=== PATIENT | female | born 1985 | race Caucasian/White ===

== ENCOUNTER 2016-11-06 20:15 | Outpatient (CLI) | payer OTHER ==
[~2016-11-06 20:15] MED LIST: IBUPROFEN600 MG PO; NORCO 5-325 TA1 EACH PO; TRANDATE 200 M200 MG PO
== END 2016-11-06 21:38 | disposition home or self-care (01) ==
LOC: GENOP 20:15
DX: O99.89 Other specified diseases and conditions complicating pregnancy, childbirth and the puerperium (principal); M54.9 Dorsalgia, unspecified; R10.9 Unspecified abdominal pain; Z3A.36 36 weeks gestation of pregnancy
CPT/HCPCS: G0463

== ENCOUNTER 2016-11-08 17:09 | Observation (INO) | payer OTHER ==
[2016-11-08 18:34] LABS: BUN/CREATININE RATIO 10 (0-10)
[2016-11-09 08:08] LABS: HEMOGLOBIN 10.4 gm/dl (12.3-15.3); RED BLOOD COUNT 3.68 M/UL (4.00-5.10); WHITE BLOOD COUNT 10.7 K/UL (4.5-11.0)
[2016-11-09 18:05] LABS: URINE TOTAL PROTEIN 13 mg/dl
== END 2016-11-09 19:16 | disposition home or self-care (01) ==
LOC: GENOP 17:09 → OB 17:33
PROVIDERS: Obstetrics & Gynecology; ADMIT Obstetrics & Gynecology
DX: O13.3 Gestational [pregnancy-induced] hypertension without significant proteinuria, third trimester (principal); Z3A.36 36 weeks gestation of pregnancy; Z98.818 Other dental procedure status; Z79.899 Other long term (current) drug therapy; Z88.2 Allergy status to sulfonamides
CPT/HCPCS: 36415; 59025; 80053; 81001; 84156; 84550; 85027; 85610; 85730; G0378

== ENCOUNTER 2016-11-15 07:29 | Inpatient (IN) | payer OTHER ==
[2016-11-15 08:12] LABS: HEMOGLOBIN 11.2 gm/dl (12.3-15.3); RED BLOOD COUNT 3.89 M/UL (4.00-5.10); WHITE BLOOD COUNT 8.8 K/UL (4.5-11.0)
[2016-11-16 03:53] LABS: HEMOGLOBIN 9.4 gm/dl (12.3-15.3)
[2016-11-18] MEDS ORDERED: STOOL SOFTENER100 MG PO (10:23)
== END 2016-11-18 12:25 | disposition home or self-care (01) | DRG 765 ==
LOC: OB 07:29
PROVIDERS: Obstetrics & Gynecology; ADMIT Obstetrics & Gynecology
PROC: 3E0R3CZ (ICD-10-PCS; 2016-11-15)
PROC: 10D00Z1 Extraction of Products of Conception, Low, Open Approach (ICD-10-PCS; principal; 2016-11-15 11:15)
PROC: 3E0234Z Introduction of Serum, Toxoid and Vaccine into Muscle, Percutaneous Approach (ICD-10-PCS; 2016-11-16)
DX: O13.4 Gestational [pregnancy-induced] hypertension without significant proteinuria, complicating childbirth (principal); O98.32 Other infections with a predominantly sexual mode of transmission complicating childbirth; O34.219 Maternal care for unspecified type scar from previous cesarean delivery; N85.8 Other specified noninflammatory disorders of uterus; Z3A.37 37 weeks gestation of pregnancy; Z37.0 Single live birth; O99.42 Diseases of the circulatory system complicating childbirth; I34.1 Nonrheumatic mitral (valve) prolapse; O99.02 Anemia complicating childbirth; D64.9 Anemia, unspecified; A63.0 Anogenital (venereal) warts; O09.213 Supervision of pregnancy with history of pre-term labor, third trimester; O90.89 Other complications of the puerperium, not elsewhere classified; G89.18 Other acute postprocedural pain; O99.353 Diseases of the nervous system complicating pregnancy, third trimester; G43.909 Migraine, unspecified, not intractable, without status migrainosus; Z23 Encounter for immunization; Z87.440 Personal history of urinary (tract) infections; Z79.899 Other long term (current) drug therapy; Z88.2 Allergy status to sulfonamides; Z91.040 Latex allergy status; Z90.49 Acquired absence of other specified parts of digestive tract; Z98.890 Other specified postprocedural states; Z80.1 Family history of malignant neoplasm of trachea, bronchus and lung; Z80.6 Family history of leukemia; Z82.49 Family history of ischemic heart disease and other diseases of the circulatory system; Z83.3 Family history of diabetes mellitus; Z84.1 Family history of disorders of kidney and ureter; Z83.49 Family history of other endocrine, nutritional and metabolic diseases
CPT/HCPCS: 36415; 36600; 81001; 82800; 85014; 85018; 85025; 90715; C9113; J0690; J2274; J2405; J2590; J2765; J3010; J3430; J7120

== ENCOUNTER 2016-12-09 10:40 | Inpatient (IN) | payer OTHER ==
[~2016-12-09] VITALS: Ht 162.6 cm; Wt 58.1 kg
[~2016-12-09 10:40] MED LIST changes: +STOOL SOFTENER100 MG PO
[2016-12-09 13:26] LABS: HEMOGLOBIN 10.5 gm/dl (12.3-15.3); RED BLOOD COUNT 3.81 M/UL (4.00-5.10); WHITE BLOOD COUNT 15.3 K/UL (4.5-11.0)
[2016-12-10 03:41] LABS: HEMOGLOBIN 7.8 gm/dl (12.3-15.3); RED BLOOD COUNT 2.86 M/UL (4.00-5.10); WHITE BLOOD COUNT 10.5 K/UL (4.5-11.0)
[2016-12-10 03:49] LABS: BUN/CREATININE RATIO 16 (0-10)
[2016-12-10 15:10] LABS: HEMOGLOBIN 7.9 gm/dl (12.3-15.3)
== END 2016-12-12 17:02 | disposition home or self-care (01) | DRG 776 ==
LOC: ER1 10:40 → ZEROF 16:02 → MED SURG 4 21:07 → OB 21:54
PROVIDERS: Physician Assistant; ADMIT Obstetrics & Gynecology
DX: O86.21 Infection of kidney following delivery (principal); O90.81 Anemia of the puerperium; K66.8 Other specified disorders of peritoneum; G43.909 Migraine, unspecified, not intractable, without status migrainosus; Z88.2 Allergy status to sulfonamides; Z91.040 Latex allergy status
CPT/HCPCS: 36415; 70470; 80053; 81001; 83605; 83690; 84484; 85014; 85018; 85025; 87040; 87086; 93005; 96374; 96375; 99285; J0696; J0780; J1200; J2270; J2405; J2765; J3475; J7030; J7050; J7120; Q9962; Q9966

== ENCOUNTER → 2020-09-28 | Outpatient (CLI) | payer OTHER | LOC: EMI 08:45 | DX: M25.561 Pain in right knee (principal); M25.361 Other instability, right knee; R60.0 Localized edema; R93.6 Abnormal findings on diagnostic imaging of limbs | CPT/HCPCS: 73721 ==

== ENCOUNTER → 2020-11-14 | Outpatient (CLI) | payer OTHER | LOC: HEART 5 09:30 | DX: I34.1 Nonrheumatic mitral (valve) prolapse (principal); I07.1 Rheumatic tricuspid insufficiency; I34.0 Nonrheumatic mitral (valve) insufficiency | CPT/HCPCS: 93306 ==

== ENCOUNTER → 2021-07-18 | Outpatient (CLI) | payer OTHER | LOC: KOH-I 16:52 | DX: R06.02 Shortness of breath (principal) | CPT/HCPCS: 71046 ==